=== PATIENT | female | born 1960 | race Caucasian/White ===

== ENCOUNTER 2016-06-16 07:53 | Emergency (ER) | payer BC ==
[2016-06-16 08:13] VITALS: BP 114/72; PULSE 60; RESP 18; TEMP 99.1; O2SAT 97
[2016-06-16] MEDS ORDERED: diphenhydrAMINE 25 MG CAP PO ONE (08:38)
[2016-06-16] MEDS ORDERED: predniSONE 20 MG TAB PO ONE (08:38)
--- NOTE | 2016-06-16 08:43 | UCPHY ---
H & P Time Seen by Provider: 06/16/16 08:20 Patient Type: New HPI/ROS: CHIEF COMPLAINT: Facial swelling HISTORY OF PRESENT ILLNESS: 55-year-old female woke this morning with swelling to the right side of her face. She noted set her right eye was swollen shut with swelling on the cheek and extending to the lower face. No warmth, redness , but slightly itchy. No discharge from eyes. No itching of the eyes. She states this has happened multiple times in the past, sometimes affecting the left side of her face sometimes the right. It is usually present in the morning. Symptoms will improve with warm compresses and Benadryl. She denies any throat pain, or shortness of breath. Of note she had a hive on right hip yesterday. Patient is not take any Eugenio inhibitors. She is on Wellbutrin XL do but has been on this medication for quite some time and had developed a facial swelling prior to the start of this medication. She can identify no acute new exposures or stressors. Patient has not seen a physician for the symptoms. REVIEW OF SYSTEMS: Aside from elements discussed in the HPI, a comprehensive 10-point review of systems was reviewed and is negative. PAST MEDICAL HISTORY: Depression. SOCIAL HISTORY: Nonsmoker. . VITAL SIGNS Reviewed by me. GENERAL: Well-developed, well-nourished, no obvious respiratory distress. Conversant. HEENT: Atraumatic. Eyes: Mild edema of the lower eyelid. Conjunctiva are clear, no icterus or injection. No discharge from the eye. Mouth: moist mucous membranes, bilaterally. No erythema and the salivary gland duct. Uvula with very faint angioedema of the tip. Neck: supple with no adenopathy. No stridor auscultated. LUNGS: Clear to auscultation bilaterally, no wheezes, rhonchi or rales. CARDIAC: Regular rate and rhythm, no rubs, murmurs or gallops. ABDOMEN: Soft, nontender, nondistended, bowel sounds normal. BACK: No CVA tenderness. EXTREMITIES: No trauma. No edema. Range of motion is normal throughout. NEURO: Alert and oriented, grossly nonfocal. SKIN: Warm and dry, no rash noted. Patient reports the hive on her right hip has disappeared. PSYCHIATRIC: Normal mentation, no agitation. Smoking Status: Former smoker Constitutional: Initial Vital Signs Temperature (C) 37.3 C 06/16/16 08:11 Heart Rate 60 06/16/16 08:11 Respiratory Rate 18 06/16/16 08:11 Blood Pressure 114/72 06/16/16 08:11 O2 Sat (%) 97 06/16/16 08:11 O2 Delivery Mode Room Air Allergies/Adverse Reactions: No Known Allergies Allergy (Unverified 06/16/16 08:10) Home Medications: Medication Instructions Recorded Wellbutrin Sr 06/16/16 predniSONE 40 mg PO DAILY #6 tab 06/16/16 Medical Decision Making ED Course/Re-evaluation: 55-year-old female presents with reoccurring angioedema of the face, which has occurred bilaterally. No clear inciting factors. This is a 1st time she has sought medical attention. Patient took a dose of nonsedating antihistamine prior to presentation and reports that her symptoms are improving from when she woke up. She was given Benadryl and prednisone an urgent care. She will be discharged with prescription for prednisone as well for chest [place] urgent Benadryl. She will follow up with the primary care physician on Friday. We discussed possible etiologies such as read tarry angioedema, idiopathic angioedema, complement deficiencies, autoimmune disease, food allergens, etc. We discussed reasons to return. Differential Diagnosis: Differential diagnoses for the patient's symptom complex was considered including but not limited to angioedema, anaphylaxis, idiopathic angioedema, cellulitis, dental infection, conjunctivitis, erysipelas, Eugenio inhibitor related angioedema, parotid duct stone. - Data Points Medications Given: Discontinued Medications Diphenhydramine HCl (Benadryl) 50 mg PO EDNOW ONE Stop: 06/16/16 08:39 Last Admin: 06/16/16 08:53 Dose: 50 mg Prednisone (Prednisone) 40 mg PO EDNOW ONE Stop: 06/16/16 08:39 Last Admin: 06/16/16 08:53 Dose: 40 mg Departure - Departure Disposition: Home, Routine, Self-Care Clinical Impression: Idiopathic facial swelling Idiopathic angioedema Qualifiers: Encounter type: initial encounter Qualified Code(s): T78.3XXA - Angioneurotic edema, initial encounter Condition: Good Instructions: Angioedema (ED) Additional Instructions: It is not clear to me exactly what is causing the recurrent swelling of your face. It may be some type of idiopathic angioedema. It may be related to complement deficiencies, stress, autoimmune disorders, food allergens, and multiple other causes. I recommend that you take regular doses of antihistamines to control the swelling.. The most common antihistamine is diphenhydramine (Benadryl). Dose is 25-50 mg every 6-8 hours as needed for itching and rash. Diphenhydramine can be sedating. Another type of antihistamine is loratadine (Claritin). This is taken once a day. It is not sedating. Repeat doses of antihistamines may be needed if the swelling continues to come and go over the next several days. You may notice that the swelling is worse after exposure to heat, warm showers, or exertion. I have also given you a prescription for prednisone, which is a steroid. The dose is 40 mg a day x3 doses. Please take this as directed once a day, in the morning, if you continue to have swelling of the face. Please follow up with your primary care physician as soon as possible. Return to urgent care or seek care immediantly if severe shortness of breath develops, increase in the swelling despite the medications, or sensation that the throat is closing. Referrals: Lucia Velarde PA [Primary Care Provider] - As per Instructions Prescriptions: predniSONE 40 mg PO DAILY #6 tab - PQRS PQRS Measurement: Not applicable
== END 2016-06-16 08:53 | disposition home or self-care (01) ==
LOC: CED 07:53
DX: T78.3XXA Angioneurotic edema, initial encounter (principal); Z87.891 Personal history of nicotine dependence
CPT/HCPCS: 99203-PO; G0463-PO

== ENCOUNTER → 2016-12-20 | Outpatient (CLI) | payer BC | LOC: FIMAGING 11:06 | PROVIDERS: ATTEND Physician Assistant Medical | DX: Z13.820 Encounter for screening for osteoporosis (principal); M85.80 Other specified disorders of bone density and structure, unspecified site; N95.1 Menopausal and female climacteric states ==